=== PATIENT | female | born 1960 | race Caucasian/White ===

== ENCOUNTER → 2025-01-21 06:51 | Outpatient (CLI) | payer OTHER, SELFPAY ==
--- NOTE | 2025-01-21 06:55 | DI.ECHO.S_ITS ---
[facility]+ [facility] : : [id number] : : [place] : : [id number] : : Phone: [phone] Echocardiogram Report + + :Name: DE ECKERT Study Date: 01/21/2025 Height: 64 in : :Hospital ReadingLocation: Weight: 164 lb : : Gender: Female BSA: 1.8 m2 : :: 1960 Age: 64 yrs BP: 137/66 mmHg: :Reason For Study: PALPITATIONS : :Ordering Physician: CRISTELA, : :ISABELLE Performed By: London Borja : :Referring: ISABELLE ZAMBRANO E : + + Interpretation Summary The patient was in sinus bradycardia with heart rates between 54-57 bpm during the exam. The ejection fraction is estimated to be 55-60%. Diastolic parameters suggest probable normal left ventricular diastolic function and normal filling pressures. The right ventricle grossly appears normal in size with probable normal systolic function. No significant valvular abnormalities. Pulmonary artery pressures cannot be estimated because of the lack of a measurable TR jet velocity. Procedure: A two-dimensional transthoracic echocardiogram with color flow and Doppler was performed. The study quality was technically adequate. There is no prior echocardiogram noted for this patient. The patient was in sinus bradycardia with heart rates between 54-57 bpm during the exam. Left Ventricle: The left ventricle is normal in size. There is normal left ventricular wall thickness. There is no ventricular septal defect visualized. The ejection fraction is estimated to be 55-60%. There are no focal wall motion abnormalities. Diastolic parameters suggest probable normal left ventricular diastolic function and normal filling pressures. Right Ventricle: The right ventricle grossly appears normal in size with probable normal systolic function. Atria: The left atrial size is normal. Right atrial size is normal. The interatrial septum is not well visualized. Mitral Valve: The mitral valve leaflets are slightly calcified. There is no mitral regurgitation noted. Aortic Valve: The aortic valve is trileaflet. The aortic valve opens well. There is no aortic valve stenosis. No aortic regurgitation is present. Tricuspid Valve: The tricuspid valve is not well visualized, but is grossly normal. No tricuspid regurgitation. Pulmonary artery pressures cannot be estimated because of the lack of a measurable TR jet velocity. Pulmonic Valve: The pulmonic valve is not well seen, but is grossly normal. There is no pulmonic valvular regurgitation. Great Vessels: The aortic root is normal size. The dimensions of the ascending aorta are normal. The pulmonary artery is not well visualized, but is probably normal size. The inferior vena cava was not visualized. Pericardium/ Pleura There is no pericardial effusion. MMode/2D Measurements & Calculations LVIDd: 4.7 cm LVOT diam: 1.9 cm LVIDs: 3.3 cm Ao root diam: 2.8 cm FS: 30.8 % asc Aorta Diam: 2.9 cm EPSS: 0.84 cm Ao Arch Diam (Prox Trans): 1.6 cm IVSd: 0.91 cm LVPWd: 0.78 cm LV abreu. diameter/BSA (cm/m^2): 2.6 LV sys. diameter/BSA (cm/m^2): 1.8 LA A2 area: 14.7 cm2 RA long axis: 5.2 cm LA A4 area: 17.6 cm2 RA area: 13.8 cm2 LA length (vol): 5.0 cm RA vol: 31.1 ml LA vol: 44.0 ml RA : 17.3 ml/m2 LA vol index: 24.5 ml/m2 RVD1 (basal): 2.9 cm RVD2 (mid): 2.2 cm TAPSE: 2.4 cm Doppler Measurements & Calculations Ao V2 max: 130.7 cm/sec LVOT Max Sreekanth: 95.9 cm/sec Ao V2 mean: 90.0 cm/sec LV V1 max P.7 mmHg Ao max P.8 mmHg LV V1 VTI: 25.5 cm Ao mean P.6 mmHg ANA(I,D): 2.3 cm2 Ao V2 VTI: 32.2 cm ANA(V,D): 2.1 cm2 sev ratio: 0.79 ANA indexed to BSA (cm^2/m^2): 1.3 MV E max sreekanth: 74.8 cm/sec PA V2 max: 99.1 cm/sec MV A max sreekanth: 67.8 cm/sec PA V2 mean: 69.7 cm/sec MV E/A: 1.1 PA mean P.1 mmHg Med Peak E' Sreekanth: 7.3 cm/sec PA pr(Accel): 20.8 mmHg E/E' med: 10.3 Lat Peak E' Sreekanth: 7.1 cm/sec E/E' lat: 10.5 E/e' average: 10.4 MV dec time: 0.22 sec SV(OT): 73.1 ml Reading Physician:01:55 PM
--- NOTE | 2025-01-21 17:11 | DI.NM.S_ITS ---
DATE OF SERVICE: 01/21/2025 EXERCISE STRESS TEST INDICATIONS: Palpitation, hypertension. CARDIAC STRESS: The patient underwent exercise stress test under the supervision of an attending staff. The patient walked on Young protocol for 9 minutes and 50 seconds, achieved maximum heart rate of 146, which was 92% of target heart rate. Resting blood pressure 140/70 and peak blood pressure of 160/70. Baseline rhythm sinus with repolarization changes including flattening of ST-segment in inferolateral leads. During stress, no convincing ischemic changes seen. No significant arrhythmias. No chest pain. The patient had some shortness of breath. LUZ -47% and 12.8 METS of workload. Normal recovery. CONCLUSION: Exercise stress test is negative for inducible ischemia. Excellent exercise tolerance. LUZ -47%. No anginal symptoms. No significant arrhythmias. Overall, low-risk exercise stress test. Roxi Garcia - JENA/josé miguel/NORMAN doc#: [id number]/job#: [id number] dd: 01/21/2025 16:55:00 dt: 01/21/2025 17:06:00 DICTATING /COPIES TO: Aurelio Arenas MD COPIES MNE: [id number];
== END ==
LOC: ECHO 06:54
PROVIDERS: Referring Provider Internal Medicine Cardiovascular Disease; Visit Provider Internal Medicine Cardiovascular Disease
DX: I10 Essential (primary) hypertension (principal); R00.2 Palpitations
CPT/HCPCS: 93017; 93306